=== PATIENT | male | born 1995 | race Hispanic/Latino ===

== ENCOUNTER 2018-01-21 05:17 | Emergency (ER) | payer OTHER ==
[2018-01-21] MEDS ORDERED: Sodium Chloride 0.9% 1,000 ML IV ONE ×2 (05:53→08:10)
[2018-01-21] MEDS ORDERED: Sodium Chloride 0.9% 1,000 ML ONE ×3 (06:12→08:10)
[2018-01-21 06:16] LABS: BASO # 0.1 K/uL (0.0-0.2); BASO % 0.7 % (0.0-2.0); EOS # 0.3 K/uL (0.0-0.7); EOS % 2.1 % (0.0-4.0); HEMOGLOBIN 16.2 g/dL (12.0-18.0); LYMPH # 5.2 K/uL (1.0-4.3); LYMPH % 38.9 % (20.0-40.0); MEAN CELL VOLUME 85.4 fL (80.0-94.0); MEAN CORPUSCULAR HGB CONC 35.1 g/dL (33.0-37.0); MEAN PLATELET VOLUME 9.7 fL (7.2-11.7); MONO # 1.1 K/uL (0.0-0.8); MONO % 8.4 % (0.0-10.0); NEUT # 6.6 K/uL (1.8-7.0); NEUT % 49.9 % (50.0-75.0); NRBC % 0.1 % (0.0-2.0); RBC 5.4 Mil/uL (4.40-5.90); WHITE BLOOD COUNT 13.3 K/uL (4.8-10.8)
--- NOTE | 2018-01-21 06:30 | C.PDOC ---
History Of Present Illness 22 year old male presents to the ER via EMS with a complaint of sudden onset of right flank pain that radiates down to the right buttock and groin. Patient denies any trauma but notes he was lifting heavy pieces wood at work. Patient also denies dysuria, hematuria, incontinence, weakness, or numbness. Time Seen by Provider: 01/21/18 05:35 Chief Complaint (Nursing): Male Genitourinary History Per: Patient History/Exam Limitations: no limitations Onset/Duration Of Symptoms: Hrs Current Symptoms Are (Timing): Still Present Quality Of Discomfort: Unable To Describe Associated Symptoms: Back Pain. denies: Fever, Chills, Urinary Symptoms Alleviating Factors: None Recent travel outside of the [place]: No Past Medical History Reviewed: Historical Data, Nursing Documentation, Vital Signs Vital Signs: Last Vital Signs Temp 974 F H 01/21/18 05:24 Pulse 76 01/21/18 05:24 Resp 22 01/21/18 05:24 BP 129/76 01/21/18 05:24 Pulse Ox 100 01/21/18 06:34 Family History: States: Unknown Family Hx - Social History Hx Alcohol Use: No Hx Substance Use: No Review Of Systems Constitutional: Negative for: Fever, Chills Genitourinary: Negative for: Dysuria, Incontinence, Hematuria Musculoskeletal: Positive for: Back Pain, Leg Pain Neurological: Negative for: Weakness, Incoordination Physical Exam - Physical Exam Appears: Non-toxic Skin: Normal Color, Warm, Diaphoretic Head: Atraumatic, Normacephalic Eye(s): bilateral: Normal Inspection, PERRL, EOMI Oral Mucosa: Moist Neck: Normal, Supple Chest: Symmetrical, No Tenderness Cardiovascular: Rhythm Regular Respiratory: Normal Breath Sounds, No Rales, No Rhonchi, No Wheezing Gastrointestinal/Abdominal: Soft, No Tenderness Back: CVA Tenderness (Right) Male Genital: No Testicular Tenderness, No Testicular Swelling, No Inguinal Tenderness, No Inguinal Swelling, No Scrotal Swelling, Circumcised Extremity: Normal ROM (x4) Neurological/Psych: Oriented x3, Normal Speech, Normal Motor, Normal Sensation Gait: Steady ED Course And Treatment - Laboratory Results Result Diagrams: 01/21/18 06:13 01/21/18 06:13 O2 Sat by Pulse Oximetry: 100 (Room air) Pulse Ox Interpretation: Normal Progress Note: CT abd/pel, blood work, and urinalysis ordered. IV fluids, zofran , and toradol administered. Disposition - Disposition Disposition Time: 07:00 Condition: FAIR Forms: [facility] (H[place]er) - POA Present On Arrival: None - Clinical Impression Clinical Impression: Renal colic - PA / INVESTMENT SPECIALIST / Resident Statement MD/DO has reviewed & agrees with the documentation as recorded. - Scribe Statement The provider has reviewed the documentation as recorded by the [employer] [place] All medical record entries made by the [employer] were at my direction and personally dictated by me. I have reviewed the chart and agree that the record accurately reflects my personal performance of the history, physical exam, medical decision making, and the department course for this patient. I have also personally directed, reviewed, and agree with the discharge instructions and disposition. Physician Patient Turnover Patient Signed Over To: Kiarra Allen Handoff Comments: Pending CT scan and labs
[2018-01-21 06:33] LABS: ALB/GLOB RATIO 1.7 (1.0-2.1); ALBUMIN 4.6 g/dL (3.5-5.0); ALT/SGPT 39 U/L (21-72); AST/SGOT 22 U/L (17-59); BLOOD UREA NITROGEN 13 mg/dL (9-20); CALCIUM 9.2 mg/dl (8.6-10.4); GFR AFRICAN-AMERICAN > 60; GFR NON-AFRICAN AMERICAN > 60; LIPASE 111 U/L (23-300)
[2018-01-21] MEDS ORDERED: Lidocaine 129 MG in Sodium Chloride 0.9% 100 ML IV STA (06:59)
--- NOTE | 2018-01-21 07:23 | CT ---
EXAM: CT Abdomen and Pelvis Without Intravenous Contrast CLINICAL HISTORY: 22 years old, male; Pain; Abdominal pain; Additional info: Right sided flank pain, radiates to groin TECHNIQUE: Axial computed tomography images of the abdomen and pelvis without intravenous contrast. All CT scans at this facility use one or more dose reduction techniques, viz.: automated exposure control; ma/kV adjustment per patient size (including targeted exams where dose is matched to indication; i.e. head); or iterative reconstruction technique. 626 images are submitted. Coronal and sagittal reformatted images were created and reviewed. COMPARISON: No relevant prior studies available. FINDINGS: Lower thorax: Left-sided lower thoracic. Moderate hiatal hernia with delayed emptying versus gastroesophageal reflux. ABDOMEN:Limitations: Absence of IV contrast decreases sensitivity for detecting solid organ and vascular abnormality and injury. Liver: Unremarkable. Gallbladder and bile ducts: Hyperdense gallbladder sludge versus artifact versus gallstones. Pancreas: Unremarkable. No ductal dilation. Spleen: Unremarkable. No splenomegaly. Adrenals: Unremarkable. No mass. Kidneys and ureters: Moderate right hydroureteronephrosis with a 4 mm right mid ureteral stone seen on image 82 series 3 representing acute obstructive uropathy. Nonobstructive right renal stone.Faint densities in the medullary regions of both kidneys are somewhat nonspecific, perhaps reflecting dense solute, Santos's plaque, tiny calcifications, or other debris. Stomach and bowel: There are nonspecific fluid filled small bowel loops. These findings can represent ileus versus enteritis versus slow transit versus peristalsis. Diverticulosis. No obstruction. Appendix: Normal appendix. PELVIS: Bladder: Partially decompressed bladder with bladder wall thickening. Correlation with urinalysis is recommended only if clinical cystitis is suspected. Reproductive: Unremarkable. ABDOMEN and PELVIS: Intraperitoneal space: Unremarkable. No free air. No significant fluid collection. Bones/joints: There is right-sided upper lumbar scoliosis. No acute fracture. No dislocation. Soft tissues: There is a fat-containing umbilical hernia. Vasculature: Unremarkable. No abdominal aortic aneurysm. Lymph nodes: Multiple subcentimeter mesenteric and ileocolic lymph nodes. Findings are nonspecific but may represent mesenteric adenitis. IMPRESSION: 1. Moderate right hydroureteronephrosis with a 4 mm right mid ureteral stone seen on image 82 series 3 representing acute obstructive uropathy.
[2018-01-21 08:07] VITALS: RESP 13
[2018-01-21 08:13] VITALS: TEMP 97.9
[2018-01-21 08:54] LABS: URINE BILIRUBIN NEGATIVE (NEGATIVE); URINE BLOOD 3+ (NEGATIVE); URINE CLARITY Clear (Clear); URINE COLOR Yellow (YELLOW); URINE GLUCOSE (UA) NORMAL (Normal); URINE LEUKOCYTE ESTERASE NEG Leu/uL (Negative); URINE NITRATE NEGATIVE (NEGATIVE); URINE PROTEIN 1+ mg/dL (NEGATIVE); URINE UROBILINOGEN NORMAL mg/dL (0.2-1.0)
[2018-01-21 09:51] VITALS: BP 127/65; PULSE 90; O2SAT 99
[2018-01-21] MEDS ORDERED: Potassium Chloride 20 mEq/15 ml LIQ UD PO STA (09:56)
[2018-01-21] MEDS ORDERED: Potassium Chloride 20 mEq ER Tab PO STA (10:02)
[2018-01-21] MEDS ORDERED: Potassium Chloride 20 mEq ER Tab PO ONE (10:03)
== END 2018-01-21 10:25 | disposition home or self-care (01) ==
LOC: C.ER 05:17
DX: N13.2 Hydronephrosis with renal and ureteral calculous obstruction (principal); E87.6 Hypokalemia
CPT/HCPCS: 74176; 80053; 81001; 83690; 85025; 87086; 96361; 96374; 96375; 99285; J1885; J2001; J2405; J7040